=== PATIENT | male | born 1980 | race Two or more races ===

== ENCOUNTER 2019-06-04 22:32 | Emergency (ER) | payer OTHER ==
[~2019-06-04] VITALS: Ht 165.1 cm; Wt 77.1 kg
[2019-06-04 22:40] VITALS: BP 138/86
--- NOTE | 2019-06-04 22:40 | NUR ---
ED Nurse Note: Patient walked into ED c/o laceration lcoated on left index finger, states that he cut himself accidentally, wound is on the tip of the index finger, nail is intact. patient rates his pain a 3/10 pain. paitent is alert and oriented x4, ambulatory with a steady gait, VSS
[2019-06-04] MEDS ORDERED: Tetanus/Diptheria/Pertussis IM ONE (23:00)
[2019-06-04] MEDS ORDERED: Neosporin Oint 15gm TOPIC ONE (23:00)
[2019-06-04] MEDS ORDERED: Neosporin Oint Ud Pkt TOPIC ONE ×2 (23:04→23:30)
[2019-06-04] MEDS ORDERED: CEPHALEXIN500 M1 ORAL (23:10)
--- NOTE | 2019-06-04 23:11 | Emergency Room Report ---
History of Present Illness General Chief Complaint: Laceration Source: Patient Present Illness HPI 38-year-old male presents with laceration to the tip of his left pointer finger just prior to arrival on the pad, patient was cutting at the restaurant, there was some bleeding, there is some mild sharp pain with movement that is alleviated with rest. Allergies: Coded Allergies: No Known Allergies (Unverified , 06/04/19) Patient History Past Medical History: see triage record Reviewed Nursing Documentation: PMH: Agreed; PSxH: Agreed Nursing Documentation-PMH Past Medical History: No Stated History Review of Systems All Other Systems: negative except mentioned in HPI Physical Exam Vital Signs Date Time Temp Pulse Resp B/P (MAP) Pulse Ox O2 Delivery O2 Flow Rate FiO2 06/04/19 22:36 98.4 74 18 138/86 (103) 95 Room Air Sp02 EP Interpretation: reviewed, normal General Appearance: well appearing, no apparent distress, alert Head: normocephalic, atraumatic Eyes: bilateral eye PERRL, bilateral eye EOMI ENT: uvula midline, moist mucus membranes Neck: supple, thyroid normal, supple/symm/no masses Respiratory: no respiratory distress Musculoskeletal: other - Left upper extremity: 2+ radial pulses, isolation of the DIP and PIP unremarkable, patient is able to flex, patient with a superficial laceration on the pad of the distal pointer finger measuring 1 cm, superficial nothing exposed, wound explored and cleaned Neurologic: alert, oriented x3 Psychiatric: mood/affect normal Skin: no rash, warm/dry Medical Decision Making Diagnostic Impression: Primary Impression: Laceration ER Course 38-year-old male presents with a superficial laceration to the pad of his left minor finger, neurovascular exam, wound was cleaned irrigated, patient had his left finger wrapped, antibiotics will be provided, patient counseled if he worsens to return disposition home with return precautions. TDAP Last Vital Signs Date Time Temp Pulse Resp B/P (MAP) Pulse Ox O2 Delivery O2 Flow Rate FiO2 06/04/19 22:36 98.4 74 18 138/86 (103) 95 Room Air Disposition: HOME, SELF-CARE Condition: Stable Scripts Cephalexin* (CEPHALEXIN*) 500 Mg Tablet 500 MG ORAL EVERY 6 HOURS for 28 Days, #7 CAP Prov: William Gilliam MD 06/04/19 Referrals: NOT CHOSEN IPA/,REFERRING (PCP) [facility] [place]. [facility] Patient Instructions: Laceration Care, Adult, Nonsutured Laceration Care Additional Instructions: The patient was provided with discharge instructions, notified to follow-up with a primary care doctor and or specialist in the next 24-48 hours, and to return to the ED if they have worsening of their symptoms. Please note that this report is being documented using DRAGON technology. This can lead to erroneous entry secondary to incorrect interpretation by the dictating instrument. William Gilliam MD Jun 04, 2019 23:11
[2019-06-04 23:25] VITALS: BP 132/80
--- NOTE | 2019-06-04 23:25 | NUR ---
ER DISCHARGE NOTE: Patient is cleared to be discharged per ERMD, pt is aox4, on room air, with stable vital signs. pt was given dc and prescription instructions, pt was able to verbalize understanding, pt id band removed without complications. pt is able to ambulate with steady gait. pt took all belongings.
== END 2019-06-04 23:25 | disposition home or self-care (01) ==
LOC: EMR 23:00
DX: S61.211A Laceration without foreign body of left index finger without damage to nail, initial encounter (principal); Z23 Encounter for immunization; W26.0XXA Contact with knife, initial encounter; Y93.G1 Activity, food preparation and clean up; Y92.511 Restaurant or cafe as the place of occurrence of the external cause; Y99.0 Civilian activity done for income or pay
CPT/HCPCS: 90471; 90715; 99282